=== PATIENT | female | born 1955 | race African-American/Black ===

== ENCOUNTER 2017-01-04 07:09 | Emergency (ER) | payer MEDICARE, MEDICAID ==
--- NOTE | 2017-01-04 08:14 | ER Document Report ---
ED Headache - General Mode of Arrival: Ambulatory Information source: Patient TRAVEL OUTSIDE OF THE [place] IN LAST 30 DAYS: No - HPI Patient complains to provider of: Headache Patient reports: Other - previous TIAs Timing: Still present Quality of pain: Achy Associated symptoms: None <ANNA SOUZA - Last Filed: 01/04/17 08:29> <DILIP SHELLEY - Last Filed: 01/04/17 12:50> - General Chief Complaint: Headache Stated Complaint: HEADACHE Notes: Patient is a 61 year old female that presents to the emergency department today with complaints of a headahce for the last few days. Significant other at bedside states the patient fell a few days ago after "tripping over something at the seafood restaurant". Significant other states the patient has been acting appropriately since the fall. Patient has no other complaints at this time. (ANNA SOUZA) - Related Data Allergies/Adverse Reactions: No Known Allergies Allergy (Verified 08/06/16 08:19) Past Medical History - General Information source: Patient, [facility] Records - Social History Smoking Status: Former Smoker Cigarette use (# per day): No Frequency of alcohol use: Hx of heavy EtOH consumption Lives with: Spouse/Significant other Family History: Reviewed & Not Pertinent, Other - Patient is unable to remember. - Past Medical History Cardiac Medical History: Reports: Hx Coronary Artery Disease, Hx Hypercholesterolemia, Hx Hypertension, Hx Peripheral Vascular Disease Pulmonary Medical History: Reports: Hx Pneumonia Neurological Medical History: Reports: Hx Cerebrovascular Accident - hemorrhagic , multiple basal ganglia lacunar infarcts Endocrine Medical History: Reports: Hx Diabetes Mellitus Type 1, Hx Diabetes Mellitus Type 2 Renal/ Medical History: Reports: Hx Kidney Stones GI Medical History: Reports: Hx Liver Failure, Hx Ulcer, Hx Colonoscopy, Hx Endoscopy Musculoskeltal Medical History: Reports Hx Arthritis, Reports Hx Gout, Reports Hx Musculoskeletal Deformity Psychiatric Medical History: Reports: Hx Depression Traumatic Medical History: Reports: Hx Fractures - Left arm Past Surgical History: Reports: Hx Cardiac Catheterization, Hx Cholecystectomy, Hx Hysterectomy - Immunizations Hx Diphtheria, Pertussis, Tetanus Vaccination: No - "been awhile" <ANNA SOUZA - Last Filed: 01/04/17 08:29> Review of Systems - Review of Systems Constitutional: No symptoms reported EENT: No symptoms reported Cardiovascular: No symptoms reported Respiratory: No symptoms reported Gastrointestinal: No symptoms reported Genitourinary: No symptoms reported Female Genitourinary: No symptoms reported Musculoskeletal: No symptoms reported Skin: No symptoms reported Hematologic/Lymphatic: No symptoms reported Neurological/Psychological: See HPI, Headaches -: Yes All other systems reviewed and negative <ANNA SOUZA - Last Filed: 01/04/17 08:29> Physical Exam - General General appearance: Alert In distress: None - HEENT Head: Normocephalic, Atraumatic, Other - Temporal, forehead, and posterior cervical muscles are tender with palpation - Respiratory Respiratory status: No respiratory distress Chest status: Nontender Breath sounds: Normal - Cardiovascular Rhythm: Regular Heart sounds: Normal auscultation Murmur: No - Abdominal Inspection: Normal Distension: No distension Tenderness: Nontender - Extremities General upper extremity: Normal inspection, Normal ROM. No: Edema General lower extremity: Normal inspection, Normal ROM. No: Edema - Neurological Cognition: Other - slightly demented at baseline according to significant other at bedside Orientation: AAOx4 Speech: Normal - Psychological Associated symptoms: Normal affect, Normal mood - Skin Skin Temperature: Warm Skin Moisture: Dry Skin Color: Normal <ANNA SOUZA - Last Filed: 01/04/17 08:29> Course - Laboratory Result Diagrams: 01/04/17 10:29 01/04/17 10:29 <DILIP SHELLEY - Last Filed: 01/04/17 12:50> - Vital Signs Vital signs: Temp Pulse Resp BP Pulse Ox 98.1 F 103 H 18 139/91 H 100 01/04/17 07:19 01/04/17 07:19 01/04/17 07:19 01/04/17 07:19 01/04/17 07:19 - Laboratory Laboratory results interpreted by me: 01/04/17 01/04/17 10:29 10:29 WBC 12.9 H Absolute Neutrophils 8.8 H Chloride 113 H Carbon Dioxide 18 L Est GFR (Non-Af Amer) 52 L Uric Acid 8.6 H AST 52 H Alkaline Phosphatase 295 H Albumin 3.1 L Discharge <ANNA SOUZA - Last Filed: 01/04/17 08:29> <DILIP SHELLEY - Last Filed: 01/04/17 12:50> - Discharge Clinical Impression: Muscle tension headache Condition: Stable Disposition: HOME, SELF-CARE Additional Instructions: Tension Headache: Your problem has been diagnosed as muscle tension headache. This very common type of headache occurs because of tightness in the muscles of the head and neck. The cause may be neck or jaw joint problems, but most commonly the cause is emotional stress. The headache may last hours or days. The treatment of uncomplicated tension headaches is rest and pain medication. Often, the newer antiinflammatory pain medications are prescribed, as these also decrease the irritability of the painful tissues. Muscle relaxers , cold packs, or warm packs are sometimes helpful. Anti-anxiety medication or narcotics are sometimes needed temporarily, but are best avoided in the long run. Your doctor has evaluated your headache problem, and finds no evidence of a serious health problem as a cause for the headache. If your headache becomes more severe, or if new symptoms develop (such as fever, stiff neck, vomiting, or decreasing alertness) you should be re-examined by the physician. TAKE THE PAIN PILLS DISPENSED TODAY FOR HEADACHE IF NEEDED. DRINK PLENTY OF FLUIDS. REST. FOLLOW UP WITH YOUR DOCTOR THIS WEEK IF NOT IMPROVING. RETURN TO THE EMERGENCY ROOM IF ANY NEW OR WORSENING SYMPTOMS. Bharatibe Attestation: 01/04/17 12:49 I personally performed the services described in the documentation, reviewed and edited the documentation which was dictated to the scribe in my presence, and it accurately records my words and actions. (DILIP SHELLEY) Scribe Documentation - Scribe Written by Ruth:: Ruth Meehan, 01/04/2017 0851 acting as scribe for :: Eliazar <ANNA SOUZA - Last Filed: 01/04/17 08:29>
[2017-01-04] MEDS ORDERED: HYDROCODONE/ACETAMINOPHEN 5-325 MG 6 TAB/DSPK PO PRN ×2 (08:33→12:50)
[2017-01-04 09:05] LABS: APPEARANCE,URINE CLEAR; BILIRUBIN,URINE NEGATIVE (NEGATIVE); GLUCOSE, URINE NEGATIVE (NEGATIVE); KETONES,URINE NEGATIVE (NEGATIVE); LEUKOCYTE ESTERASE,URINE NEGATIVE (NEGATIVE); NITRITE,URINE NEGATIVE (NEGATIVE); PROTEIN,URINE NEGATIVE (NEGATIVE); URINE SPECIFIC GRAVITY 1.006; UROBILINOGEN,URINE NEGATIVE mg/dL (<2.0)
[2017-01-04] MEDS ORDERED: HYDROCODONE/ACETAMINOPHEN 5-325 MG TABLET PO ONE (10:20)
[2017-01-04 10:48] LABS: ABSOLUTE BASOPHILS # (AUTO) 0.1 10^3/uL (0.0-0.2); ABSOLUTE EOSINOPHILS # (AUTO) 0.3 10^3/uL (0.0-0.6); ABSOLUTE LYMPHOCYTES (AUTO) 2.8 10^3/uL (0.5-4.7); ABSOLUTE MONOCYTES (AUTO) 0.9 10^3/uL (0.1-1.4); ABSOLUTE NEUT (AUTO) 8.8 10^3/uL (1.7-8.2); BASOPHILS % (AUTO) 0.5 % (0-2); HEMATOCRIT 38.4 % (36.0-47.0); HGB HCT DIFFERENCE 0.6; MEAN CORPUSCULAR HEMOGLOBIN 32.1 pg (27.0-33.4); MEAN CORPUSCULAR HGB CONC 33.9 g/dL (32.0-36.0); MEAN CORPUSCULAR VOLUME 95 fl (80-97); MONOCYTES % (AUTO) 7.2 % (3-13); RED BLOOD COUNT 4.06 10^6/uL (3.72-5.28); RED CELL DISTRIBUTION WIDTH 13.8 % (11.5-14.0); SEGMENTED NEUTROPHILS % (AUTO) 68.3 % (42-78); WHITE BLOOD COUNT 12.9 10^3/uL (4.0-10.5)
[2017-01-04 10:58] LABS: PROTHROMBIN TIME 12.9 SEC (11.4-15.4)
[2017-01-04 11:09] LABS: ALANINE AMINOTRANSFERASE 49 U/L (9-52); ALBUMIN 3.1 g/dL (3.5-5.0); ALKALINE PHOSPHATASE 295 U/L (38-126); ANION GAP 12 (5-19); ASPARTATE AMINO TRANSFERASE 52 U/L (14-36); BILIRUBIN,TOTAL 1.3 mg/dL (0.2-1.3); BLOOD UREA NITROGEN 13 mg/dL (7-20); CALCIUM 9.9 mg/dL (8.4-10.2); CARBON DIOXIDE 18 mmol/L (22-30); CHLORIDE 113 mmol/L (98-107); CREATININE RESULT 1.07 mg/dL (0.52-1.25); GLUCOSE 97 mg/dL (75-110); POTASSIUM 3.7 mmol/L (3.6-5.0); SODIUM 142.9 mmol/L (137-145); URIC ACID 8.6 mg/dL (2.5-7.5)
[2017-01-04 13:00] VITALS: BP 127/78
== END 2017-01-04 13:05 | disposition home or self-care (01) ==
LOC: ER 07:09
DX: G44.209 Tension-type headache, unspecified, not intractable (principal); W19.XXXA Unspecified fall, initial encounter; Z87.891 Personal history of nicotine dependence
CPT/HCPCS: 99284; 36415; 82140; 84550; 85025; 85610; 80053; 81001; 70450; A9270 ×2

== ENCOUNTER → 2017-01-18 | Outpatient (CLI) | payer MEDICARE, MEDICAID | LOC: WI 09:00 | PROVIDERS: ATTEND Internal Medicine | DX: Z12.31 Encounter for screening mammogram for malignant neoplasm of breast (principal) | CPT/HCPCS: 77067; G0202 ==

== ENCOUNTER 2017-02-06 13:08 | Emergency (ER) | payer MEDICARE, MEDICAID ==
--- NOTE | 2017-02-06 13:25 | ER Document Report ---
ED Medical Screen (RME) - General Chief Complaint: General Weakness Stated Complaint: WEAKNESS TRAVEL OUTSIDE OF THE [place] IN LAST 30 DAYS: No - HPI Notes: 02/06/17 13:24 Generalized weakness with a history of liver failure and hepatic encephalopathy. Patient has been out of her xifaxan - Related Data Allergies/Adverse Reactions: No Known Allergies Allergy (Verified 08/06/16 08:19) Past Medical History - Past Medical History Cardiac Medical History: Reports: Hx Coronary Artery Disease, Hx Hypercholesterolemia, Hx Hypertension, Hx Peripheral Vascular Disease Pulmonary Medical History: Reports: Hx Pneumonia Neurological Medical History: Reports: Hx Cerebrovascular Accident - hemorrhagic , multiple basal ganglia lacunar infarcts. Denies: Hx Migraine, Hx Seizures Endocrine Medical History: Reports: Hx Diabetes Mellitus Type 1, Hx Diabetes Mellitus Type 2 Renal/ Medical History: Reports: Hx Kidney Stones. Denies: Hx End Stage Renal Disease, Hx Peritoneal Dialysis GI Medical History: Reports: Hx Liver Failure, Hx Ulcer, Hx Colonoscopy, Hx Endoscopy. Denies: Hx Gastroesophageal Reflux Disease, Hx Hiatal Hernia Musculoskeltal Medical History: Reports Hx Arthritis, Reports Hx Gout, Reports Hx Musculoskeletal Deformity Psychiatric Medical History: Reports: Hx Depression Denies: Hx Attention Deficit Hyperactivity Disorder, Hx Bipolar Disorder Traumatic Medical History: Reports: Hx Fractures - Left arm Past Surgical History: Reports: Hx Cardiac Catheterization, Hx Cholecystectomy, Hx Hysterectomy. Denies: Hx Kidney (Renal Surgery), Hx Mastectomy, Hx Neurologic Surgery, Hx Nose Surgery, Hx Open Heart Surgery, Hx Oral Surgery, Hx Orthopedic Surgery, Hx Pacemaker, Hx Pancreatic Surgery, Hx Pituitary Surgery, Hx Rectal Surgery, Hx Thyroid Surgery, Hx Tonsillectomy, Hx Tubal Ligation, Hx Urinary Tract Surgery, Hx Vascular Surgery - Immunizations Hx Diphtheria, Pertussis, Tetanus Vaccination: No - "been awhile" Review of Systems - Review of Systems Constitutional: Weakness Physical Exam - Vital signs Vitals: Pulse Resp BP Pulse Ox 95 22 H 105/60 100 02/06/17 13:14 02/06/17 13:14 02/06/17 13:14 02/06/17 13:14 - General General appearance: Appears well In distress: None - Respiratory Respiratory status: No respiratory distress Chest status: Nontender Breath sounds: Normal Chest palpation: Normal Course - Vital Signs Vital signs: Temp Pulse Resp BP Pulse Ox 95 22 H 105/60 100 02/06/17 13:14 02/06/17 13:14 02/06/17 13:14 02/06/17 13:14
[2017-02-06 14:04] LABS: HEMATOCRIT 38.5 % (36.0-47.0); HEMOGLOBIN 12.6 g/dL (12.0-15.5); HGB HCT DIFFERENCE -0.7; MEAN CORPUSCULAR HGB CONC 32.6 g/dL (32.0-36.0); MEAN CORPUSCULAR VOLUME 92 fl (80-97); RED BLOOD COUNT 4.18 10^6/uL (3.72-5.28); RED CELL DISTRIBUTION WIDTH 15.9 % (11.5-14.0); WHITE BLOOD COUNT 15.1 10^3/uL (4.0-10.5)
[2017-02-06 14:12] LABS: PROTHROMBIN TIME 17.7 SEC (11.4-15.4)
[2017-02-06 14:22] LABS: ALANINE AMINOTRANSFERASE 373 U/L (9-52); ALBUMIN 2.6 g/dL (3.5-5.0); ALKALINE PHOSPHATASE 712 U/L (38-126); BILIRUBIN,DIRECT 22.2 mg/dL (0.0-0.4); BILIRUBIN,TOTAL 24.2 mg/dL (0.2-1.3); BLOOD UREA NITROGEN 32 mg/dL (7-20); CALCIUM 9.1 mg/dL (8.4-10.2); CHLORIDE 119 mmol/L (98-107); CREATINE KINASE 108 U/L (30-135); CREATININE RESULT 3.21 mg/dL (0.52-1.25); GLUCOSE 157 mg/dL (75-110); POTASSIUM 4.8 mmol/L (3.6-5.0); SODIUM 145.8 mmol/L (137-145); TOTAL PROTEIN 7.8 g/dL (6.3-8.2)
[2017-02-06 14:29] LABS: BAND NEUTROPHILS % (MANUAL) 1 % (3-5); BASOPHILS % (MANUAL) 1 % (0-2); EOSINOPHILS % (MANUAL) 1 % (0-6); LYMPHOCYTES % (MANUAL) 23 % (13-45); TOTAL CELLS COUNTED 100
[2017-02-06 14:31] LABS: RBC MORPHOLOGY COMMENT NORMO-CYTIC/CHROMIC
[2017-02-06] MEDS ORDERED: RIFAXIMIN 550 MG TABLET PO ONE (14:31)
[2017-02-06 14:34] LABS: CREATINE KINASE MB 1.82 ng/mL (<4.55)
[2017-02-06 14:43] LABS: ASPARTATE AMINO TRANSFERASE 1840 U/L (14-36)
[2017-02-06 14:46] LABS: TROPONIN I 0.186 ng/mL
[2017-02-06 14:47] LABS: ANION GAP 18 (5-19); CARBON DIOXIDE 9 mmol/L (22-30)
--- NOTE | 2017-02-06 14:56 | ER Document Report ---
ED General - General Chief Complaint: General Weakness Stated Complaint: WEAKNESS Time seen by provider: 14:55 Information source: Relative Notes: The patient is a 62-year-old female with a complicated medical history including alcohol induced liver cirrhosis, hepatic encephalopathy, insulin requiring diabetes, hypertension, and coronary artery disease. The patient has been doing relatively well lately and last had blood work 1 month ago at which time her total bilirubin was 1.3. The patient's significant other states that over the past week, she has been getting more unsteady and confused and is concerned about hepatic encephalopathy. The significant other states that he started giving the patient Cefpodoxime 3 days ago. He states that she had ran out of her Xifaxan, so he started giving her some [id number] herbal remedy (Milk weed).) . TRAVEL OUTSIDE OF THE [place] IN LAST 30 DAYS: No - HPI Onset: Last week Onset/Duration: Gradual Quality of pain: Dull Severity: Moderate Pain Level: 3 Associated symptoms: denies: Chills, Fever, Shortness of breath Exacerbated by: Denies Relieved by: Denies Similar symptoms previously: Yes Recently seen / treated by doctor: Yes - Related Data Allergies/Adverse Reactions: No Known Allergies Allergy (Verified 08/06/16 08:19) Past Medical History - General Information source: Relative - Social History Smoking Status: Never Smoker Cigarette use (# per day): No Chew tobacco use (# tins/day): No Frequency of alcohol use: in the past patient had a history of alcohol and drug abuse Family History: Reviewed & Not Pertinent, Other - Patient is unable to remember. Patient has suicidal ideation: No Patient has homicidal ideation: No - Past Medical History Cardiac Medical History: Reports: Hx Coronary Artery Disease, Hx Hypercholesterolemia, Hx Hypertension, Hx Peripheral Vascular Disease Pulmonary Medical History: Reports: Hx Pneumonia Neurological Medical History: Reports: Hx Cerebrovascular Accident - hemorrhagic , multiple basal ganglia lacunar infarcts. Denies: Hx Migraine, Hx Seizures Endocrine Medical History: Reports: Hx Diabetes Mellitus Type 1, Hx Diabetes Mellitus Type 2 Renal/ Medical History: Reports: Hx Kidney Stones. Denies: Hx End Stage Renal Disease, Hx Peritoneal Dialysis GI Medical History: Reports: Hx Liver Failure, Hx Ulcer, Hx Colonoscopy, Hx Endoscopy. Denies: Hx Gastroesophageal Reflux Disease, Hx Hiatal Hernia Musculoskeltal Medical History: Reports Hx Arthritis, Reports Hx Gout, Reports Hx Musculoskeletal Deformity Psychiatric Medical History: Reports: Hx Depression Denies: Hx Attention Deficit Hyperactivity Disorder, Hx Bipolar Disorder Traumatic Medical History: Reports: Hx Fractures - Left arm Past Surgical History: Reports: Hx Cardiac Catheterization, Hx Cholecystectomy, Hx Hysterectomy. Denies: Hx Kidney (Renal Surgery), Hx Mastectomy, Hx Neurologic Surgery, Hx Nose Surgery, Hx Open Heart Surgery, Hx Oral Surgery, Hx Orthopedic Surgery, Hx Pacemaker, Hx Pancreatic Surgery, Hx Pituitary Surgery, Hx Rectal Surgery, Hx Thyroid Surgery, Hx Tonsillectomy, Hx Tubal Ligation, Hx Urinary Tract Surgery, Hx Vascular Surgery - Immunizations Hx Diphtheria, Pertussis, Tetanus Vaccination: No - "been awhile" Review of Systems - Review of Systems Notes: Review of systems: Constitutional: Denies fever, chills. EENT: Denies ear pain, sinus tenderness, throat pain, throat swelling. Cardiovascular: Denies chest pain, palpitations, dyspnea or edema. Respiratory: Denies wheezing, cough, hemoptysis. Abdomen: Positive for abdominal pain and decreased appetite. Genitourinary: Denies dysuria, pyuria, hematuria, flank pain. Musculoskeletal: denies joint pain or swelling, denies back pain. Neurologic: See H&P. Skin: Denies rash, lesions. Physical Exam - Vital signs Vitals: Pulse Resp BP Pulse Ox 95 22 H 105/60 100 02/06/17 13:14 02/06/17 13:14 02/06/17 13:14 02/06/17 13:14 Notes: Physical exam: GENERAL: 62-year-old female, lying in stretcher, does answer questions but does appear confused. Her temperature is 90.5 rectally. HEAD: Atraumatic, normocephalic. EYES: Pupils equal round and reactive to light, extraocular movements intact, sclera icteric, conjunctiva moderately ENT: Dry mucous membranes. NECK: Normal range of motion, supple without lymphadenopathy or JVD. LUNGS: Breath sounds clear to auscultation bilaterally and equal. No wheezes rales or rhonchi. HEART: Regular rate and rhythm without murmurs, rubs or gallops. ABDOMEN: Soft, normoactive bowel sounds. She does have generalized tenderness to palpation. No guarding, no rebound. No masses appreciated. Back: No sacral breakdown. Rectal: Positive hemorrhoids, stool brown, sent for study. EXTREMITIES: Normal range of motion, no pitting or edema. No clubbing or cyanosis. NEUROLOGICAL: Cranial nerves II through XII grossly intact. Moving all extremities. PSYCH: Blunted affect. SKIN: Warm, Dry, normal turgor, no rashes or lesions noted. Course - Re-evaluation Re-evalutation: 02/06/17 18:23 Patient's problem list is as follows: Sepsis: Patient was hypothermic, lactic acid 2.9. She is getting IV fluids cautiously given the significant history of coronary artery disease and acute renal failure. She's getting warmed IV fluids for the hypothermia. She has a warming blanket. Blood cultures and urine cultures were sent. IV antibiotics have been given. CT of the abdomen does show some inflammation around the cecum with thickening of the cecum fall. There is a trace amount of fluid in the abdomen. Acute liver failure: Patient is clinically having hepatic encephalopathy. Her ammonia level is 75 at this time. Her total bili is had a drastic increase in the past month. She is getting lactulose and Xifaxan early in the ER. Acute renal failure: Creatinine 3.2. Her creatinine was 1.07 one month ago. We are monitoring urine output with [place]. She is getting IV fluids. Elevated troponin: She does have substantial underlying Coronary artery disease. We will continue to trend troponins. The patient's EKG is sinus rhythm with a ventricular rate of 94, left axis deviation. There is no significant ST changes or T-wave changes. The elevation in the troponin is most likely secondary to the metabolic acidosis and not a primary cardiac event. Airway: Patient is maintaining her airway at this time. Currently, patient is hemodynamically stable. She is looking better. EMS was ready for transport. 02/06/17 19:00 - Vital Signs Vital signs: Temp Pulse Resp BP Pulse Ox 98.1 F 95 28 H 110/67 100 02/06/17 18:40 02/06/17 13:14 02/06/17 18:41 02/06/17 18:41 02/06/17 18:41 - Laboratory Result Diagrams: 02/06/17 13:30 02/06/17 13:30 Laboratory results interpreted by me: 02/06/17 02/06/17 02/06/17 13:30 13:30 13:30 WBC 15.1 H RDW 15.9 H Band Neutrophils % 1 L Abs Neuts (Manual) 10.7 H PT 17.7 H VBG pH VBG pCO2 VBG HCO3 Sodium 145.8 H Chloride 119 H Carbon Dioxide 9 L* BUN 32 H Creatinine 3.21 H Est GFR ( Amer) 18 L Est GFR (Non-Af Amer) 15 L Glucose 157 H Lactic Acid Total Bilirubin 24.2 H Direct Bilirubin 22.2 H AST 1840 H ALT 373 H Alkaline Phosphatase 712 H Ammonia Albumin 2.6 L TSH Free T4 Urine Protein Urine Bilirubin Urine Urobilinogen Urine Ascorbic Acid 02/06/17 02/06/17 02/06/17 13:30 14:42 15:45 WBC RDW Band Neutrophils % Abs Neuts (Manual) PT VBG pH VBG pCO2 VBG HCO3 Sodium Chloride Carbon Dioxide BUN Creatinine Est GFR ( Amer) Est GFR (Non-Af Amer) Glucose Lactic Acid 2.9 H Total Bilirubin Direct Bilirubin AST ALT Alkaline Phosphatase Ammonia 75.7 H Albumin TSH Free T4 Urine Protein 30 H Urine Bilirubin MODERATE H Urine Urobilinogen 4.0 H Urine Ascorbic Acid 40 H 02/06/17 02/06/17 17:15 17:15 WBC RDW Band Neutrophils % Abs Neuts (Manual) PT VBG pH 7.29 L VBG pCO2 25.7 L VBG HCO3 12.2 L Sodium Chloride Carbon Dioxide BUN Creatinine Est GFR ( Amer) Est GFR (Non-Af Amer) Glucose Lactic Acid Total Bilirubin Direct Bilirubin AST ALT Alkaline Phosphatase Ammonia Albumin TSH 0.35 L Free T4 2.98 H Urine Protein Urine Bilirubin Urine Urobilinogen Urine Ascorbic Acid - Diagnostic Test Radiology reviewed: Image reviewed, Reports reviewed - Chest x-ray shows no infiltrates. CT of the abdomen shows mild inflammation around the cecum with cecal wall thickening. Critical Care Note - Critical Care Note Total time excluding time spent on procedures (mins): 90 Discharge - Discharge Clinical Impression: hepatic encephalopathy, acute liver failure, acute renal failure, troponin elevation Sepsis Qualifiers: Sepsis type: sepsis due to unspecified organism Qualified Code(s): A41.9 - Sepsis, unspecified organism Condition: Serious Disposition: [place] Referrals: LEANDRO CASTRO MD [Primary Care Provider] - Follow up as needed
[2017-02-06 14:57] LABS: AMORPHOUS SEDIMENT,URINE TRACE /HPF; APPEARANCE,URINE CLOUDY; BILIRUBIN,URINE MODERATE (NEGATIVE); GLUCOSE, URINE NEGATIVE (NEGATIVE); KETONES,URINE NEGATIVE (NEGATIVE); LEUKOCYTE ESTERASE,URINE NEGATIVE (NEGATIVE); NITRITE,URINE NEGATIVE (NEGATIVE); PROTEIN,URINE 30 mg/dL (NEGATIVE); URINE SPECIFIC GRAVITY 1.016
[2017-02-06] MEDS ORDERED: NORMAL SALINE 1000 ML 1,000 ML IV PRN (15:08)
[2017-02-06] MEDS ORDERED: CEFTRIAXONE 2 GM/D5W RTU 50 ML IV ONE (15:10)
[2017-02-06 17:29] LABS: VENOUS BLOOD BASE EXCESS -12.4 mmol/L; VENOUS BLOOD HCO3 12.2 mmol/L (20-32); VENOUS BLOOD PCO2 25.7 mmHg (35-63); VENOUS BLOOD PH 7.29 (7.30-7.42)
[2017-02-06] MEDS ORDERED: LACTULOSE SYRUP 20 GM/30 ML UDCUP PO ONE (17:54)
[2017-02-06] MEDS ORDERED: LEVOFLOXACIN 500 MG/D5W RTU 100 ML IV ONE (18:30)
[2017-02-06 18:31] LABS: THYROID STIMULATING HORMONE 0.35 uIU/mL (0.47-4.68)
[2017-02-06 19:02] VITALS: BP 110/67
--- NOTE | 2017-02-06 20:50 | EKG REPORT ---
SEVERITY:- BORDERLINE ECG - SINUS RHYTHM PROBABLE LEFT ATRIAL ABNORMALITY BORDERLINE PROLONGED QT INTERVAL : Confirmed by: Rojas Pitt 06-Feb-2017 20:49:39
--- NOTE | 2017-02-06 20:50 | EKG REPORT ---
SEVERITY:- ABNORMAL ECG - SINUS RHYTHM CONSIDER ANTERIOR INFARCT PROLONGED QT INTERVAL : Confirmed by: Rojas Pitt 06-Feb-2017 20:49:47
== END 2017-02-06 19:02 | disposition short-term general hospital (02) ==
LOC: ER 13:08
DX: A41.9 Sepsis, unspecified organism (principal); K72.00 Acute and subacute hepatic failure without coma; N17.9 Acute kidney failure, unspecified; K37 Unspecified appendicitis; T68.XXXA Hypothermia, initial encounter; X58.XXXA Exposure to other specified factors, initial encounter; R74.8 Abnormal levels of other serum enzymes; E11.9 Type 2 diabetes mellitus without complications; Z79.4 Long term (current) use of insulin; I25.10 Atherosclerotic heart disease of native coronary artery without angina pectoris; I10 Essential (primary) hypertension; R10.817 Generalized abdominal tenderness; K64.9 Unspecified hemorrhoids; R63.0 Anorexia; R10.9 Unspecified abdominal pain; Z86.73 Personal history of transient ischemic attack (TIA), and cerebral infarction without residual deficits
CPT/HCPCS: 93005; 99291; 99292; 96361; 51702; 96375; 96365; 36415; 87040; 87086; 84439; 82553; 82140; 82550; 83690; 84443; 85025; 85610; 82272; 87088; 80053; 81001; 84484; 87186; 82803; 83605; 87804; 71010; 74176; 93010; J1956; A9270 ×2; J7030; J0696